=== PATIENT | female | born 1965 | race Caucasian/White ===

== ENCOUNTER → 2017-11-22 13:25 | Outpatient (REF) | payer BC, SELFPAY ==
[2017-11-22 19:31] LABS: Amphetamine/Metha Screen,Urine Negative ng/mL (<1000); Barbiturates Screen,Urine Negative ng/mL (<200); Benzodiazepines Screen,Urine Negative ng/mL (200); Cannabinoid Screen,Urine Negative ng/mL (<50); Cocaine Screen,Urine Negative ng/g (<300); Methadone Screen,Urine Negative ng/mL (<300); Opiate Screen,Urine Negative ng/mL (<300); Phencyclidine Screen,Urine Negative ng/mL (<25)
[2017-12-05 11:14] LABS: Alprazolam Negative (Cutoff=100); Benzodiazepines Negative ng/mL (Cutoff=100); Clonazepam Negative (Cutoff=100); Flurazepam Negative (Cutoff=100); Lorazepam Negative (Cutoff=100); Midazolam Negative (Cutoff=100); Temazepam Negative (Cutoff=100); Triazolam Negative (Cutoff=100)
== END ==
LOC: LAB 13:25
PROVIDERS: Visit Provider Emergency Medicine
DX: Z79.899 Other long term (current) drug therapy (principal)
CPT/HCPCS: 80305

== ENCOUNTER → 2018-02-17 13:40 | Outpatient (REF) | payer BC, SELFPAY ==
[2018-02-17 18:57] LABS: Amphetamine/Metha Screen,Urine Negative ng/mL (<1000); Barbiturates Screen,Urine Negative ng/mL (<200); Benzodiazepines Screen,Urine Negative ng/mL (200); Cannabinoid Screen,Urine Negative ng/mL (<50); Cocaine Screen,Urine Positive ng/g (<300); Methadone Screen,Urine Negative ng/mL (<300); Opiate Screen,Urine Negative ng/mL (<300); Phencyclidine Screen,Urine Negative ng/mL (<25)
== END ==
LOC: LAB 13:40
PROVIDERS: Visit Provider Emergency Medicine
DX: Z79.899 Other long term (current) drug therapy (principal)
CPT/HCPCS: 80305

== ENCOUNTER → 2018-08-04 09:33 | Outpatient (REF) | payer BC, SELFPAY ==
[2018-08-04 13:31] LABS: Basophils % 0.8 % (0.1-2.0); Eosinophils # 0.1 K/mm3 (0.0-0.4); Eosinophils % 1.9 % (0.1-12.0); Hematocrit 44.3 % (37.0-47.0); Hemoglobin 14.2 g/dL (12.2-16.2); Lymphocytes # 1.8 K/mm3 (0.7-4.5); Lymphocytes % 34.4 K/mm3 (10-50); Mean Corpuscular Hemoglobin 31.6 pg (27.0-31.2); Mean Corpuscular Volume 98.7 fl (81-99); Mean Platelet Volume 9.9 fl (7.4-10.4); Monocytes # 0.3 K/mm3 (0.1-1.0); Monocytes % 5.9 % (1.7-9.3); Neutrophils # 2.9 K/mm3 (1.8-7.8); Platelet Count 199 K/mm3 (142-424); Red Blood Count 4.49 M/mm3 (4.20-5.40); Red Cell Distribution Width 12.6 % (11.5-17.5); White Blood Count 5.1 K/mm3 (4.8-10.8)
[2018-08-04 13:33] LABS: Alanine Aminotransferase 23 U/L (12-78); Albumin Level 4.1 gm/dL (3.4-5.0); Albumin/Globulin Ratio 1.3 (1.1-1.8); Alkaline Phosphatase 98 U/L (46-116); Anion Gap 11.4 mEq/L (5-15); Aspartate Amino Transferase 21 U/L (15-37); Bilirubin,Total 0.3 mg/dL (0.2-1.0); Blood Urea Nitrogen 9 mg/dL (7-18); Calcium 9.8 mg/dL (8.5-10.1); Carbon Dioxide 28 mmol/L (21.0-32.0); Chloride 108 mmol/L (98-107); Creatinine,Serum 0.72 mg/dL (0.55-1.02); Estimated Glomerular Filt Rate 84 ml/min (>60); GFR (African American) 102 ML/MIN (>60); Globulin 3.1 gm/dl (1.3-3.2); Glucose 110 mg/dL (74-106); Potassium 4.4 mmoL/L (3.5-5.1); Sodium 143 mmol/L (136-145); Total Protein,Serum 7.2 gm/dL (6.4-8.2)
== END ==
LOC: LAB 09:33
PROVIDERS: PCP Emergency Medicine; Visit Provider Emergency Medicine
DX: R53.83 Other fatigue (principal)
CPT/HCPCS: 80053; 85025

== ENCOUNTER → 2018-08-26 13:38 | Outpatient (CLI) | payer BC, SELFPAY ==
[2018-08-26 14:42] LABS: Amphetamine/Metha Screen,Urine Negative ng/mL (<1000); Barbiturates Screen,Urine Negative ng/mL (<200); Benzodiazepines Screen,Urine Negative ng/mL (<200); Cannabinoid Screen,Urine Negative ng/mL (<50); Cocaine Screen,Urine Negative ng/mL (<300); Methadone Screen,Urine Negative ng/mL (<300); Opiate Screen,Urine Negative ng/mL (<300); Phencyclidine Screen,Urine Negative ng/mL (<25)
[2018-09-01 09:23] LABS: Alprazolam Negative (Cutoff=100); Benzodiazepines Negative ng/mL (Cutoff=100); Clonazepam Negative (Cutoff=100); Flurazepam Negative (Cutoff=100); Lorazepam Negative (Cutoff=100); Midazolam Negative (Cutoff=100); Temazepam Negative (Cutoff=100); Triazolam Negative (Cutoff=100)
== END ==
PROVIDERS: PCP Emergency Medicine; Visit Provider Emergency Medicine
DX: F41.9 Anxiety disorder, unspecified (principal)
CPT/HCPCS: 80305; 80346

== ENCOUNTER → 2019-02-27 16:50 | Outpatient (CLI) | payer BC, SELFPAY ==
[2019-02-27 18:53] LABS: Amphetamine/Metha Screen,Urine Negative ng/mL (<1000); Barbiturates Screen,Urine Negative ng/mL (<200); Benzodiazepines Screen,Urine Positive ng/mL (<200); Cannabinoid Screen,Urine Negative ng/mL (<50); Cocaine Screen,Urine Negative ng/mL (<300); Methadone Screen,Urine Negative ng/mL (<300); Opiate Screen,Urine Negative ng/mL (<300); Phencyclidine Screen,Urine Negative ng/mL (<25)
== END ==
PROVIDERS: Visit Provider Emergency Medicine
DX: Z79.899 Other long term (current) drug therapy (principal)
CPT/HCPCS: 80305

== ENCOUNTER → 2019-06-01 14:02 | Outpatient (CLI) | payer BC, SELFPAY ==
[2019-06-01 15:39] LABS: Amphetamine/Metha Screen,Urine Negative ng/mL (<1000); Barbiturates Screen,Urine Negative ng/mL (<200); Benzodiazepines Screen,Urine Negative ng/mL (<200); Cannabinoid Screen,Urine Negative ng/mL (<50); Cocaine Screen,Urine Negative ng/mL (<300); Methadone Screen,Urine Negative ng/mL (<300); Opiate Screen,Urine Negative ng/mL (<300); Phencyclidine Screen,Urine Negative ng/mL (<25)
[2019-06-09 07:18] LABS: Alprazolam Negative (Cutoff=100); Benzodiazepines Negative ng/mL (Cutoff=100); Clonazepam Negative (Cutoff=100); Flurazepam Negative (Cutoff=100); Lorazepam Negative (Cutoff=100); Midazolam Negative (Cutoff=100); Temazepam Negative (Cutoff=100); Triazolam Negative (Cutoff=100)
== END ==
PROVIDERS: Visit Provider Emergency Medicine
DX: Z79.899 Other long term (current) drug therapy (principal)
CPT/HCPCS: 80305; 80346

== ENCOUNTER → 2019-07-31 16:20 | Outpatient (CLI) | payer BC, SELFPAY ==
--- NOTE | 2019-07-31 16:21 | MM_ITS ---
PROCEDURE: MM DIG SCREENING MAMM BI W/CAD CLINICAL INDICATION: screening There is no personal or family history of breast cancer COMPARISON: DIG MAMMO BILAT SCREENING from 11/24/2013 MAMMO SCREENING DIGITAL BILAT from 07/13/2015 TECHNIQUE: Standard CC and MLO images were obtained. R2 CAD reviewed. FINDINGS: Moderate scattered fibroglandular densities are seen in both breasts. There are couple of benign-appearing microcalcifications left breast. Are stable small benign-appearing oval densities outer quadrants of each breast. There is no suspicious lesion and no suspicious microcalcifications. IMPRESSION: Fibrofatty parenchyma with no suspicious lesions seen BI-RAD Category: 2 Benign Finding(s) FOLLOW-UP: 1YR 1 Year Follow-up (A letter has been sent to the patient regarding results of the study.) Dictated by: Dr. Clarence Queen MD 08/07/2019 13:[address] Clarence Queen MD in [place] 08/07/2019 13:16
== END ==
PROVIDERS: PCP Emergency Medicine; Visit Provider Emergency Medicine
DX: Z12.31 Encounter for screening mammogram for malignant neoplasm of breast (principal)
CPT/HCPCS: 77067

== ENCOUNTER → 2019-08-31 17:04 | Outpatient (CLI) | payer BC, SELFPAY ==
[2019-08-31 19:44] LABS: Amphetamine/Metha Screen,Urine Negative ng/mL (<1000); Barbiturates Screen,Urine Negative ng/mL (<200); Benzodiazepines Screen,Urine Negative ng/mL (<200); Cannabinoid Screen,Urine Negative ng/mL (<50); Cocaine Screen,Urine Negative ng/mL (<300); Methadone Screen,Urine Negative ng/mL (<300); Opiate Screen,Urine Negative ng/mL (<300); Phencyclidine Screen,Urine Negative ng/mL (<25)
== END ==
PROVIDERS: Visit Provider Emergency Medicine
DX: Z79.899 Other long term (current) drug therapy (principal)
CPT/HCPCS: 80305

== ENCOUNTER → 2019-11-27 14:59 | Outpatient (CLI) | payer BC, SELFPAY ==
[2019-11-27 15:37] LABS: Amphetamine/Metha Screen,Urine Negative ng/mL (<1000); Barbiturates Screen,Urine Negative ng/mL (<200); Benzodiazepines Screen,Urine Negative ng/mL (<200); Cannabinoid Screen,Urine Negative ng/mL (<50); Cocaine Screen,Urine Negative ng/mL (<300); Methadone Screen,Urine Negative ng/mL (<300); Opiate Screen,Urine Negative ng/mL (<300); Phencyclidine Screen,Urine Negative ng/mL (<25)
[2019-12-06 08:09] LABS: Alprazolam Negative (Cutoff=100); Benzodiazepines Negative ng/mL (Cutoff=100); Clonazepam Negative (Cutoff=100); Flurazepam Negative (Cutoff=100); Lorazepam Negative (Cutoff=100); Midazolam Negative (Cutoff=100); Temazepam Negative (Cutoff=100); Triazolam Negative (Cutoff=100)
== END ==
PROVIDERS: Visit Provider Emergency Medicine
DX: Z79.899 Other long term (current) drug therapy (principal)
CPT/HCPCS: 80305; 80346

== ENCOUNTER → 2020-04-20 15:51 | Outpatient (CLI) | payer BC, SELFPAY ==
--- NOTE | 2020-04-20 15:59 | XR_ITS ---
PROCEDURE: XR KNEE RT 4V CLINICAL INDICATION: knee pain COMPARISON: No exams were available for comparison FINDINGS: There is early degenerate narrowing of the lateral and patellofemoral compartments. There is no fracture or dislocation. Soft tissues are intact. IMPRESSION: Mild degenerative changes as above, no fracture Dictated by: Alberto Barriga 04/21/2020 09:33 Electronically signed by Alberto Barriga in [place] 04/21/2020 09:33
== END ==
PROVIDERS: PCP Emergency Medicine; Visit Provider Orthopaedic Surgery
DX: M25.561 Pain in right knee (principal)
CPT/HCPCS: 73564

== ENCOUNTER → 2020-05-10 14:41 | Outpatient (CLI) | payer BC, SELFPAY ==
[2020-05-10 14:51] LABS: Basophils # 0.1 K/mm3 (0-0.2); Basophils % 0.5 % (0.1-2.0); Eosinophils # 0.1 K/mm3 (0.0-0.4); Eosinophils % 1.2 % (0.1-12.0); Hematocrit 40.5 % (37.0-47.0); Hemoglobin 13.8 g/dL (12.2-16.2); Lymphocytes # 2.6 K/mm3 (0.7-4.5); Mean Corpuscular HGB Conc 34.1 g/dL (31.8-35.4); Mean Corpuscular Hemoglobin 31.9 pg (27.0-31.2); Mean Corpuscular Volume 93.5 fl (81-99); Mean Platelet Volume 9.7 fl (7.4-10.4); Monocytes # 0.4 K/mm3 (0.1-1.0); Monocytes % 4.1 % (1.7-9.3); Neutrophils # 5.5 K/mm3 (1.8-7.8); Neutrophils % 64.2 % (37.0-80.0); Platelet Count 227 K/mm3 (142-424); Red Blood Count 4.34 M/mm3 (4.20-5.40); Red Cell Distribution Width 12.6 % (11.5-17.5); White Blood Count 8.5 K/mm3 (4.8-10.8)
[2020-05-10 15:08] LABS: Chloride 103 mmol/L (98-107); Potassium 4.1 mmoL/L (3.5-5.1); Sodium 140 mmol/L (136-145)
[2020-05-10 15:10] LABS: Alanine Aminotransferase 12 U/L (12-78); Aspartate Amino Transferase 26 U/L (14-36); Blood Urea Nitrogen 6 mg/dl (7-17); Estimated Glomerular Filt Rate 103 ml/min (>60); GFR (African American) 125 ML/MIN (>60)
[2020-05-10 15:11] LABS: Albumin Level 4.4 g/dl (3.5-5.0); Albumin/Globulin Ratio 1.8 (1.1-1.8); Alkaline Phosphatase 76 U/L (38-126); Anion Gap 11.1 mEq/L (5-15); Bilirubin,Total 0.4 mg/dl (0.2-1.3); Calcium 9.6 mg/dl (8.4-10.2); Carbon Dioxide 30 mmol/L (22.0-30.0); Cholesterol 263 mg/dl (140-200); Globulin 2.5 g/dL (1.3-3.2); Glucose 90 mg/dl (74-100); HDL Cholesterol 44 mg/dl (40-60); Total Protein,Serum 6.9 g/dl (6.3-8.2); Triglycerides 181 mg/dl (30-150); VLDL Cholesterol 36 mg/dL (0-40)
[2020-05-10 15:23] LABS: Direct LDL Cholesterol 184.16 mg/dL (100-129)
[2020-05-10 15:28] LABS: T4 (Thyroxine) 7.8 ug/dl (5.53-11.0)
[2020-05-17 15:18] LABS: 1,25 Dihydroxy Vitamin D 55 pg/mL (.); 1,25-Dihydroxy, Vitamin D-2 <10 pg/mL (.); 1,25-Dihydroxy, Vitamin D-3 55 pg/mL (.)
== END ==
PROVIDERS: Visit Provider Emergency Medicine
DX: G62.9 Polyneuropathy, unspecified (principal)
CPT/HCPCS: 80053; 80061; 82652; 84436; 84443; 85025

== ENCOUNTER → 2020-05-30 11:44 | Outpatient (CLI) | payer BC, SELFPAY ==
[2020-05-30 13:44] LABS: Coronavirus 19 IgG Antibody Negative (Negative); Coronavirus 19 IgM Antibody Negative (Negative)
== END ==
PROVIDERS: Visit Provider Surgery
DX: Z01.818 Encounter for other preprocedural examination (principal)
CPT/HCPCS: 36415; 86328

== ENCOUNTER 2020-05-31 08:23 | Day surgery (SDC) | payer BC, SELFPAY ==
[2020-05-26 13:30] VITALS: BMI 27.4
[2020-05-31 08:38] VITALS: BP 122/83; PULSE 55; RESP 16; TEMP 36.5; O2SAT 99
--- NOTE | 2020-05-31 09:16 | P.PN_ITS ---
[facility] Anesthesia Checklist - Patient Identification Patient Identification: Arm Band - Structural Data Admitted From: Home Planned Operative Procedure/s: egd/colonoscopy Consent for Planned Operative Procedure(s) Verified: Yes Verified Documents: Surgical Consent, History and Physical - NPO Status Verified Time NPO: 00:00 - Additional verifications Anesthesia Reactions: No - Airway Assessment C-Spine Mobility Assessed: Yes (mp2) TMJ Mobility Assessed: Yes Dentition: Good Dentition - Neurological Assessment Level of Consciousness: Awake, Alert - Anesthesia Plan Anesthesia Risk discussed: Yes Anesthesia Plan: Verified ASA Class: II Anesthesia Type: MAC [facility] History I have reviewed the patient's past medical history: Yes Medical History: Reports:: Anxiety, Gastroesophageal Reflux Disease(GERD) Denies:: Cancer, Diabetes Mellitus Type 1, Diabetes Mellitus Type 2, Internal Pacemaker, MRSA, Seizures *Have you ever received a pneumonia vaccine?: No *Have you received a flu vaccine this season?: No Anesthesia experience/problems:: nac Laterality Cases: Right: ACL Repair Other Surgeries: Yes: Colonoscopy, Hysterectomy-Total, Hysterectomy-Partial, Other. No: Pacemaker Amputation: No Fractures: No - *Social History Last grade of school completed: GED Smoking Status: Current every day smoker Tobacco Type: cigarettes # Packs/Day (cigarettes): 1 Alcohol Intake: never Substance Use Type: denies use *Occupational Status:: unemployed Housing: apartment Household Members: family *Travel in the last 8 weeks: None - Psychiatric History Pschychiatric History:: Reports:: Anxiety Family Hx:: Diabetes, Cancer
[2020-05-31 09:44] VITALS: O2SAT 99
[2020-05-31 10:28] VITALS: BP 84/44; PULSE 65; RESP 18; TEMP 36.1; O2SAT 92
--- NOTE | 2020-05-31 10:29 | HMH.SCOPE ---
- Procedure: Date: 05/31/20 Procedure Performed:: 1. Esophagogastroduodenoscopy with biopsies 2. Total colonoscopy to terminal ileum with polypectomy by cold biopsy forceps Indications:: Patient is a 54-year-old female who presents for EGD and colonoscopy. She was originally referred by Dr. Mena for colonoscopy and seen in the office last year. She states that she had a previous colonoscopy and had polyps done at [facility]. She also states that she had an upper endoscopy at that time and inquires about having this done as well. She states that previously she was diagnosed with reflux and was placed on Prevacid but then ultimately discontinued this and her symptoms of reflux were under control. However recently she has had some symptoms consistent with dyspepsia, regurgitation. I obtained her records from [facility] and she underwent upper endoscopy and colonoscopy by Dr. Yani Tellez in August 2007 at [facility]. Her upper endoscopy revealed grade 1 esophagitis and small hiatal hernia. Colonoscopy which was done for rectal bleeding revealed some small internal hemorrhoids and a small polyp in the descending colon which was proven to be hyperplastic by pathology. I feel it would be reasonable to proceed with colonoscopy for screening purposes. Given her symptoms of dyspepsia and previous endoscopic findings upper endoscopy it is reasonable as well to see if she needs medical therapy once again. She had been scheduled for upper endoscopy and colonoscopy last fall and had taken the bowel preparation but her transportation plans did not work out. Performing Provider:: Steven Irby MD Referring Provider:: Glen Mena MD Sedation:: Propofol Procedure:: Patient was taken to endoscopy procedure room. Attention was first turned to upper endoscopy. Olympus endoscope was inserted via the oropharynx advanced through the esophagus. Majority of the esophagus appeared unremarkable. Gastroesophageal junction was encountered at approximately 38 cm from the incisors. There was findings consistent with focal esophagitis. Stomach was cannulated and insufflated. Retroflexion revealed no evidence of any appreciable hiatal hernia. Gastric mucosal biopsy was obtained for CLOtest for H. pylori. There were a couple of areas of minor erosion in the gastric antrum and biopsies were obtained. Pylorus was traversed. Duodenum appeared unremarkable. At the gastroesophageal junction a couple of biopsies were obtained using cold biopsy forceps. Stomach was desufflated and the endoscope was withdrawn. Attention was then turned to colonoscopy. Variable stiffness Olympus colonoscope was inserted via the anus. It was advanced to the cecum. Colonic preparation was good although there was some particulate stool and liquid which was suctioned free. She did have some angulation at the rectosigmoid. Ileocecal valve and appendiceal orifice were clearly identified. Colonoscope was advanced into the terminal ileum which appeared grossly normal. Colonoscope was withdrawn through the colon with careful surveillance. The rectosigmoid region there were a couple of hyperplastic appearing polyps which were removed with cold biopsy forceps. Retroflexion was performed within the rectum which revealed no evidence of any pathologic internal hemorrhoids. Colonoscope was withdrawn. Findings:: Minor distal esophagitis Nonerosive gastritis Hyperplastic appearing rectosigmoid polyps Recommendations:: Follow-up on histopathology. Treat H. pylori if positive. Likely repeat colonoscopy 5 years. Complications:: None Estimated blood obtained (mL): 2
[2020-05-31 10:38] VITALS: BP 97/55; PULSE 72; RESP 18; O2SAT 98
[2020-05-31 10:48] VITALS: BP 127/78; PULSE 55; RESP 18; O2SAT 99
[2020-05-31 10:57] VITALS: BP 133/68; PULSE 64; RESP 18; O2SAT 99
== END 2020-05-31 11:01 | disposition home or self-care (01) ==
LOC: OUTP 08:25
PROVIDERS: PCP Emergency Medicine; Visit Provider Surgery
PROC: 0DJ08ZZ Inspection of Upper Intestinal Tract, Via Natural or Artificial Opening Endoscopic (ICD-10-PCS; CPT 43235; principal; 2020-05-31 09:30)
DX: Z12.11 Encounter for screening for malignant neoplasm of colon (principal); K63.5 Polyp of colon; K20.9 Esophagitis, unspecified; K29.60 Other gastritis without bleeding; Z86.010 Personal history of colon polyps; Z87.19 Personal history of other diseases of the digestive system; F41.9 Anxiety disorder, unspecified; Z87.39 Personal history of other diseases of the musculoskeletal system and connective tissue; Z90.710 Acquired absence of both cervix and uterus; Z72.0 Tobacco use; Z79.899 Other long term (current) drug therapy; Z88.8 Allergy status to other drugs, medicaments and biological substances
CPT/HCPCS: 43239; 45380; 87339

== ENCOUNTER → 2020-07-08 08:52 | Outpatient (CLI) | payer BC, SELFPAY ==
--- NOTE | 2020-07-08 08:58 | XR_ITS ---
PROCEDURE: XR WRIST RT MIN 3V CLINICAL INDICATION: wrist pain COMPARISON: No exams were available for comparison FINDINGS: No fracture or dislocation. No lytic or blastic change. There is normal mineralization. The joint spaces are well-preserved. No significant degenerative/arthritic changes. No erosive changes evident. Other findings:None. IMPRESSION: No acute findings. Dictated by: Ernesto Smith MD 07/08/2020 10:45 Ernesto Smith MD in [place] 07/08/2020 10:45
== END ==
PROVIDERS: PCP Emergency Medicine; Visit Provider Orthopaedic Surgery
DX: M25.531 Pain in right wrist (principal)
CPT/HCPCS: 73110

== ENCOUNTER 2020-07-08 10:21 | Outpatient (RCR) | payer BC, SELFPAY | END 2020-07-08 11:00 | disposition home or self-care (01) | LOC: OT 10:21 | PROVIDERS: Visit Provider Orthopaedic Surgery | DX: M65.4 Radial styloid tenosynovitis [de Quervain] (principal) | CPT/HCPCS: 97763 ==

== ENCOUNTER → 2020-07-13 08:52 | Outpatient (CLI) | payer BC, SELFPAY ==
--- NOTE | 2020-07-13 08:56 | US_ITS ---
PROCEDURE: US GALLBLADDER CLINICAL INDICATION: RUQ pain COMPARISON: No exams were available for comparison FINDINGS: Pancreas: Unremarkable/Not well seen Liver: Unremarkable. There is appropriate direction of blood flow within a non dilated portal vein. Right kidney: Unremarkable appearing. No hydronephrosis. Gallbladder: No gallstones are apparent. There is a small focal area of increased echogenicity along the posterior gallbladder wall measuring 3 mm without shadowing and may be due to small polyp. No gallbladder wall thickening, pericholecystic fluid, or biliary dilatation. IMPRESSION: Suspect small gallbladder polyp otherwise negative right upper quadrant ultrasound Dictated by: Ernesto Smith MD 07/14/2020 06:28 Ernesto Smith MD in [place] 07/14/2020 06:28
== END ==
PROVIDERS: PCP Emergency Medicine; Visit Provider Surgery
DX: R10.11 Right upper quadrant pain (principal)
CPT/HCPCS: 76705

== ENCOUNTER → 2020-09-19 10:27 | Outpatient (POV) | payer BC, SELFPAY | PROVIDERS: Visit Provider Nurse Practitioner Family | DX: Z00.00 Encounter for general adult medical examination without abnormal findings (principal) ==

== ENCOUNTER → 2021-01-23 15:13 | Outpatient (CLI) | payer BC, SELFPAY ==
[2021-01-23 15:57] LABS: Amphetamine/Metha Screen,Urine Negative ng/ml (<1000)
[2021-01-23 15:58] LABS: Barbiturates Screen,Urine Negative ng/ml (<200); Benzodiazepines Screen,Urine Negative ng/ml (<200)
[2021-01-23 15:59] LABS: Cannabinoid Screen,Urine Positive ng/ml (<50)
[2021-01-23 16:00] LABS: Cocaine Screen,Urine Negative ng/ml (<300); Methadone Screen,Urine Negative ng/ml (<300)
[2021-01-23 16:01] LABS: Phencyclidine Screen,Urine Negative ng/ml (<25)
[2021-01-23 16:02] LABS: Opiate Screen,Urine Negative ng/ml (<300)
== END ==
PROVIDERS: Visit Provider Emergency Medicine
DX: Z79.899 Other long term (current) drug therapy (principal)
CPT/HCPCS: 80305

== ENCOUNTER 2021-03-27 13:30 | Emergency (ER) | payer BC, SELFPAY ==
[2021-03-27 14:25] VITALS: BP 144/78; PULSE 74; RESP 20; TEMP 37; O2SAT 99; BMI 24.5
--- NOTE | 2021-03-27 14:50 | HMH.EDUTC ---
[facility] [place] Disposition Clinical Impression: Bronchitis Sinusitis Qualifiers: Sinusitis location: unspecified location Chronicity: acute Recurrence: non-recurrent Qualified Code(s): J01.90 - Acute sinusitis, unspecified Disposition: Home, Self-Care Condition on Discharge: Good Instructions: DI for Sinusitis, DI for Acute Bronchitis Additional Instructions: Drink plenty of fluids. Take tylenol or ibuprofen for pain or fever. Take the medications as directed. Follow up with your regular doctor. GO TO THE ER FOR ANY WORSENING SYMPTOMS Bad tableReferrals: Royer Mena MD [Primary Care Provider] - Time of Disposition: 15:08 Medical Decision Making - Medical Records Medical records reviewed: No: I reviewed the patient's medical records. - Shaheen Inquiry Pt receiving controlled substance: No Vital Signs: 03/27/21 14:25 03/27/21 15:10 Temperature 98.6 F 98.6 F Temperature Source Oral Pulse Rate 74 Pulse Rate [Right Brachial] 74 Respiratory Rate 20 20 Blood Pressure 144/78 H Blood Pressure [Right Arm] 144/78 H Blood Pressure Mean [Right Arm] 100 Blood Pressure Source [Right Arm] Automatic Cuff Blood Pressure Position [Right Arm] Sitting 02 Sat by Pulse Oximetry 99 Oxygen Delivery Method Room Air [facility] [place] HPI - General Stated complaint: cough, headache, congestion, aches Time Seen by Provider: 03/27/21 14:51 Mode of Arrival: Ambulatory Source of Information: Patient Limitations: No Limitations Description of Symptoms (Recalled from Triage Doc. by RN): PATIENT C/O PRODUCTIVE COUGH WITH GREEN SPUTUM, CONGESTION, AND RUNNY NOSE X 2 WEEKS HEENT Symptoms (Recalled from RN notes): Yes Resp Symptoms (Recalled from RN notes): Yes Skin Symptoms (Recalled from RN notes): No MS Symptoms (Recalled from RN notes): No Functional Status (Recalled from RN notes): WNL - History of Present Illness Provider Complaint: She states that for the past 1 week, she has had a cough, chest congestion, and sinus congestion. - Related Data Previous Rx's Medication Instructions Recorded clonazepam 0.5 mg tablet 0.5 mg PO TID #90 tab 01/23/21 gabapentin 800 mg tablet 800 mg PO QID #120 tab 01/23/21 omeprazole 20 mg capsule,delayed 20 mg PO DAILY #90 cap 01/23/21 release nystatin 100,000 unit/mL oral 100,000 unit PO DAILY #60 ml 01/24/21 suspension Azithromycin [Z-Alvraez 250mg Tab*] 250 mg PO UD DOSE PK #6 tab 03/27/21 Benzonatate [Tessalon Perle 100mg 100 mg PO TIDP PRN #30 cap 03/27/21 Cap] predniSONE [Prednisone 20mg 20 mg PO BID 5 Days #10 tab 03/27/21 Tab] Allergies Allergy/AdvReac Type Severity Reaction Status Date / Time metronidazole [From Flagyl] Allergy Mild hives Verified 01/23/21 09:45 morphine Allergy Mild Hives Verified 01/23/21 09:45 - Worker's Comp Is this a Worker's Comp case?: No [facility] History - Hepatitis A Screen Drug use history?: No High risk sexual behaviors?: No History of sexually transmitted infection?: No Currently employed?: No Childcare worker?: No Do you have indoor plumbing?: Yes Do you have electricity?: Yes Attestation statement:: This patient has been screened for Hepatitis A risk factors. I have reviewed the patient's past medical history: Yes Medical History: Reports:: Anxiety, Cancer, Depression, Gastroesophageal Reflux Disease(GERD), Hyperlipidemia Denies:: Diabetes Mellitus Type 1, Diabetes Mellitus Type 2, Internal Pacemaker, MRSA, Seizures Comment: Neuropathy Laterality Cases: Right: ACL Repair Other Surgeries: Yes: Colonoscopy, EGD, Hysterectomy-Total, Hysterectomy-Partial, Other. No: Pacemaker Amputation: No Fractures: No Comment: Rt knee, tumor removed from lt side abdomen - Social History Smoking Status: Light tobacco smoker Tobacco Type: cigarettes # Packs/Day (cigarettes): 1 Alcohol Intake: never Substance Use Type: denies use Occupational Status: other Housing: apartment Household Members: family - Psychiatric History
[2021-03-27 15:10] VITALS: BP 144/78; PULSE 74; RESP 20; TEMP 37; O2SAT 99
== END 2021-03-27 15:13 | disposition home or self-care (01) ==
PROVIDERS: Emergency Provider Nurse Practitioner Family; PCP Emergency Medicine
DX: J01.90 Acute sinusitis, unspecified (principal)
CPT/HCPCS: 99202; G0463

== ENCOUNTER → 2021-05-30 15:17 | Outpatient (CLI) | payer BC, SELFPAY ==
[2021-05-30 15:48] LABS: Barbiturates Screen,Urine Negative ng/ml (<200)
[2021-05-30 15:49] LABS: Benzodiazepines Screen,Urine Negative ng/ml (<200)
[2021-05-30 15:50] LABS: Amphetamine/Metha Screen,Urine Negative ng/ml (<1000); Cannabinoid Screen,Urine Positive ng/ml (<50)
[2021-05-30 15:51] LABS: Cocaine Screen,Urine Positive ng/ml (<300)
[2021-05-30 15:52] LABS: Methadone Screen,Urine Negative ng/ml (<300); Opiate Screen,Urine Negative ng/ml (<300)
[2021-05-30 15:53] LABS: Phencyclidine Screen,Urine Negative ng/ml (<25)
== END ==
PROVIDERS: Visit Provider Emergency Medicine
DX: Z79.899 Other long term (current) drug therapy (principal)
CPT/HCPCS: 80305

== ENCOUNTER → 2021-07-05 13:46 | Outpatient (CLI) | payer BC, SELFPAY ==
[2021-07-05 14:26] LABS: Amphetamine/Metha Screen,Urine Negative ng/ml (<1000)
[2021-07-05 14:28] LABS: Barbiturates Screen,Urine Negative ng/ml (<200); Cannabinoid Screen,Urine Negative ng/ml (<50)
[2021-07-05 14:29] LABS: Benzodiazepines Screen,Urine Negative ng/ml (<200); Cocaine Screen,Urine Negative ng/ml (<300)
[2021-07-05 14:30] LABS: Methadone Screen,Urine Negative ng/ml (<300)
[2021-07-05 14:31] LABS: Opiate Screen,Urine Negative ng/ml (<300); Phencyclidine Screen,Urine Negative ng/ml (<25)
== END ==
PROVIDERS: Visit Provider Emergency Medicine
DX: G62.9 Polyneuropathy, unspecified (principal)
CPT/HCPCS: 80305

== ENCOUNTER → 2021-08-08 13:37 | Outpatient (CLI) | payer BC, SELFPAY ==
[2021-08-08 19:11] LABS: Amphetamine/Metha Screen,Urine Negative ng/ml (<1000)
[2021-08-08 19:12] LABS: Barbiturates Screen,Urine Negative ng/ml (<200); Benzodiazepines Screen,Urine Negative ng/ml (<200)
[2021-08-08 19:13] LABS: Cannabinoid Screen,Urine Negative ng/ml (<50); Cocaine Screen,Urine Negative ng/ml (<300)
[2021-08-08 19:14] LABS: Methadone Screen,Urine Negative ng/ml (<300)
[2021-08-08 19:15] LABS: Opiate Screen,Urine Negative ng/ml (<300); Phencyclidine Screen,Urine Negative ng/ml (<25)
== END ==
PROVIDERS: Visit Provider Emergency Medicine
DX: Z79.899 Other long term (current) drug therapy (principal)
CPT/HCPCS: 80305

== ENCOUNTER → 2021-10-04 15:20 | Outpatient (CLI) | payer BC, SELFPAY ==
[2021-10-05 04:59] LABS: Amphetamine/Metha Screen,Urine Negative ng/ml (<1000); Barbiturates Screen,Urine Negative ng/ml (<200); Benzodiazepines Screen,Urine Negative ng/ml (<200); Cannabinoid Screen,Urine Negative ng/ml (<50); Cocaine Screen,Urine Negative ng/ml (<300); Methadone Screen,Urine Negative ng/ml (<300); Opiate Screen,Urine Negative ng/ml (<300); Phencyclidine Screen,Urine Negative ng/ml (<25)
== END ==
PROVIDERS: Visit Provider Emergency Medicine
DX: Z79.899 Other long term (current) drug therapy (principal)
CPT/HCPCS: 80305

== ENCOUNTER → 2022-01-10 15:26 | Outpatient (CLI) | payer BC, SELFPAY ==
[2022-01-10 19:11] LABS: Amphetamine/Metha Screen,Urine Negative ng/ml (<1000); Benzodiazepines Screen,Urine Negative ng/ml (<200)
[2022-01-10 19:12] LABS: Barbiturates Screen,Urine Negative ng/ml (<200)
[2022-01-10 19:13] LABS: Cannabinoid Screen,Urine Negative ng/ml (<50); Methadone Screen,Urine Negative ng/ml (<300)
[2022-01-10 19:14] LABS: Cocaine Screen,Urine Negative ng/ml (<300)
[2022-01-10 19:15] LABS: Opiate Screen,Urine Negative ng/ml (<300); Phencyclidine Screen,Urine Negative ng/ml (<25)
== END ==
PROVIDERS: Visit Provider Emergency Medicine
DX: Z79.899 Other long term (current) drug therapy (principal)
CPT/HCPCS: 80305

== ENCOUNTER → 2022-04-17 15:26 | Outpatient (CLI) | payer BC, SELFPAY ==
[2022-04-17 14:26] LABS: Basophils % 0.6 % (0.1-2.0); Eosinophils # 0.1 K/mm3 (0.0-0.4); Eosinophils % 0.8 % (0.1-12.0); Hematocrit 39.4 % (37.0-47.0); Lymphocytes # 1.6 K/mm3 (0.7-4.5); Lymphocytes % 23.3 % (10-50); Mean Corpuscular Hemoglobin 33.1 pg (27.0-31.2); Mean Corpuscular Volume 100.2 fl (81-99); Mean Platelet Volume 9.5 fl (7.4-10.4); Monocytes # 0.4 K/mm3 (0.1-1.0); Neutrophils # 4.9 K/mm3 (1.8-7.8); Neutrophils % 70.2 % (37.0-80.0); Platelet Count 252 K/mm3 (142-424); Red Blood Count 3.93 M/mm3 (4.20-5.40); Red Cell Distribution Width 12.8 % (11.5-17.5)
[2022-04-17 14:41] LABS: Alanine Aminotransferase 15 U/L (12-78); Albumin Level 3.9 g/dl (3.5-5.0); Albumin/Globulin Ratio 1.6 (1.1-1.8); Alkaline Phosphatase 94 U/L (38-126); Anion Gap 8.4 mEq/L (5-15); Aspartate Amino Transferase 29 U/L (14-36); Blood Urea Nitrogen 10 mg/dl (7-17); Calcium 9.5 mg/dl (8.4-10.2); Carbon Dioxide 28 mmol/L (22.0-30.0); Chloride 103 mmol/L (98-107); Chol/HDL Ratio 3.2 (1-3.5); Cholesterol 189 mg/dl (140-200); Estimated Glomerular Filt Rate 86 ml/min (>60); GFR (African American) 104 ML/MIN (>60); Globulin 2.5 g/dL (1.3-3.2); Glucose 107 mg/dl (74-100); HDL Cholesterol 60 mg/dl (40-60); Potassium 3.4 mmoL/L (3.5-5.1); Sodium 136 mmol/L (136-145); Total Protein,Serum 6.4 g/dl (6.3-8.2); Triglycerides 126 mg/dl (30-150); VLDL Cholesterol 25 mg/dL (0-40)
[2022-04-17 14:46] LABS: Bilirubin,Total < 0.1 mg/dl (0.2-1.3)
[2022-04-17 14:48] LABS: Barbiturates Screen,Urine Negative ng/ml (<200); Benzodiazepines Screen,Urine Negative ng/ml (<200)
[2022-04-17 14:49] LABS: Amphetamine/Metha Screen,Urine Negative ng/ml (<1000)
[2022-04-17 14:50] LABS: Cannabinoid Screen,Urine Negative ng/ml (<50); Methadone Screen,Urine Negative ng/ml (<300)
[2022-04-17 14:51] LABS: Cocaine Screen,Urine Negative ng/ml (<300); Opiate Screen,Urine Negative ng/ml (<300)
[2022-04-17 14:52] LABS: Direct LDL Cholesterol 88.46 mg/dL (100-129); Phencyclidine Screen,Urine Negative ng/ml (<25)
[2022-04-17 14:59] LABS: T4 (Thyroxine) 7.2 ug/dl (5.53-11.0)
[2022-04-17 15:12] LABS: Thyroid Stimulating Hormone 0.31 uIU/mL (0.465-4.68)
[2022-04-17 15:48] LABS: Vitamin B12 342 pg/mL (239-931)
[2022-04-17 16:07] LABS: Folate 6.36 ng/mL
== END ==
PROVIDERS: Visit Provider Nurse Practitioner Family
DX: G62.9 Polyneuropathy, unspecified (principal); K21.9 Gastro-esophageal reflux disease without esophagitis; Z79.899 Other long term (current) drug therapy; E55.9 Vitamin D deficiency, unspecified
CPT/HCPCS: 80053; 80061; 80305; 82306; 82607; 82746; 84436; 84443; 85025